=== PATIENT | female | born 1980 | race Asian ===

== ENCOUNTER 2022-09-20 14:30 | Outpatient (RCR) | payer OTHER, SELFPAY ==
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
== END 2023-03-23 09:46 | disposition home or self-care (01) ==
LOC: SP 14:30
PROVIDERS: Family Provider Student in an Organized Health Care Education/Training Program; PCP Student in an Organized Health Care Education/Training Program; Referring Provider Student in an Organized Health Care Education/Training Program; Visit Provider Student in an Organized Health Care Education/Training Program
DX: R47.9 Unspecified speech disturbances (principal)
CPT/HCPCS: 92507; 92523

== ENCOUNTER → 2024-11-25 08:09 | Outpatient (CLI) | payer OTHER, SELFPAY | LOC: RESP 08:09 | PROVIDERS: Family Provider Student in an Organized Health Care Education/Training Program; PCP Student in an Organized Health Care Education/Training Program; Referring Provider Internal Medicine; Visit Provider Internal Medicine | DX: R06.09 Other forms of dyspnea (principal); R94.2 Abnormal results of pulmonary function studies; J98.8 Other specified respiratory disorders | CPT/HCPCS: 94060; 94726; 94729 ==

== ENCOUNTER → 2025-02-06 11:33 | Outpatient (CLI) | payer OTHER, SELFPAY ==
--- NOTE | 2025-02-06 11:34 | DI.MRI.S_ITS ---
PROCEDURE: MR LUMBAR SPINE WO CON INDICATIONS: Lower back pain TECHNIQUE: Noncontrast sagittal T1 spin echo and T2 fast echo, sagittal STIR, and T2 fast spin echo through the lumbar spine. In cases with scoliosis, additional coronal T2 fast spin echo may be performed. COMPARISON: None. FINDINGS: Image quality: Excellent. Alignment and Curvature: There is normal bony alignment. Bone Marrow: Marrow is of normal overall signal. No acute vertebral body compression fractures. Spinal Cord: Conus medullaris terminates at the T12 level. Visualized cord demonstrates normal signal and size. Paraspinous Soft Tissues: No paravertebral masses. T12-L1: Normal appearance. L1-L2: Normal appearance. L2-L3: Normal appearance. L3-L4: There is a mild disc bulge as well as bilateral facet arthropathy. Mild indentation of the thecal sac, without significant spinal stenosis. L4-L5: There is disc bulge with superimposed shallow left lateral protrusion. There is also annular fissure on the left laterally measuring 7 mm in length. There is mild facet arthropathy. No significant spinal stenosis. L5-S1: There is disc bulge with superimposed shallow left protrusion. There is moderate left lateral recess stenosis with posterior displacement of the descending left S1 root. There is no central or significant foraminal stenosis. IMPRESSION: 1. Multilevel degenerative changes with left lateral spinal stenosis at L5-S1. 2. No definite disc extrusion and no acute osseous lesions seen. Dictated by: Robert Thomas M.D. on 02/08/2025 at 17:43 Approved by: Robert Thomas M.D. on 02/08/2025 at 17:50
== END ==
PROVIDERS: Family Provider Student in an Organized Health Care Education/Training Program
DX: M47.816 Spondylosis without myelopathy or radiculopathy, lumbar region (principal); M48.07 Spinal stenosis, lumbosacral region; M54.50 Low back pain, unspecified
CPT/HCPCS: 72148

== ENCOUNTER 2025-05-05 08:16 | Emergency (ER) | payer OTHER, SELFPAY ==
[2025-05-05] VITALS (12 sets, daily range): BP systolic 127–165; BP diastolic 74–98; PULSE 62–88; RESP 12–18; TEMP 36.4; O2SAT 98–100; BMI 25.8
--- NOTE | 2025-05-05 09:23 | ED.ABDPAIN ---
HPI - Abdominal Pain General Chief Complaint: Abdominal Pain Stated Complaint: Pain in stomach after surgery x 7 days Time Seen by Provider: 05/05/25 09:01 Source: patient, RN notes reviewed and old records reviewed Mode of arrival: Ambulatory Limitations: no limitations History of Present Illness HPI narrative: 44-year-old female with a history of fibroids. Patient states had laparoscopic surgery for fibroids 7 days ago at [facility] [place], on evaluation found multiple fibroids which were more complicated than the procedure allowed for and the procedure was terminated with the plan for hysterectomy in the future. Patient states she has been healing well but starting last night started having pain at the umbilical laparoscopic site that radiates up towards her chest. She describes it as painful in her belly and more of a pressure in her chest a little bit off to the right. She denies fevers or chills. No shortness of breath. No syncope. No nausea or vomiting. States she is stooling regularly denies any black or bloody stools. Notes she has has a little bit of persistent bloody spotting vaginally. States it is not getting any worse but has not resolved. Denies any odor. Denies any dysuria urgency or frequency. Patient states she has been taking Tylenol as needed for pain none today. States no daily medications. Denies any allergies to medications. Denies any other prior surgeries. No regular tobacco, no daily alcohol, no recreational drugs. Patient is in the [place]. Received her surgery at [facility]. Has a video follow up this upcoming Monday. Related Data Home Medications ?Medication ?Instructions ?Recorded ?Confirmed acetaminophen 325 mg capsule 650 mg PO Q4H PRN 01/21/25 04/17/25 amitriptyline 10 mg tablet 10 mg PO BEDTIME 01/21/25 04/17/25 carboxymethylcellulose sodium 0.5 drp ophthalmic (eye) PRN 01/21/25 04/17/25 % eye drops in a dropperette famotidine 20 mg tablet 20 mg PO DAILY 01/21/25 04/17/25 fluticasone propionate 44 1 puff inhalation ONCE 01/21/25 04/17/25 mcg/actuation HFA aerosol inhaler hydrocortisone 1 %-pramoxine 1 % IN 01/21/25 04/17/25 rectal foam (Proctofoam HC) ibuprofen 600 mg tablet 600 mg PO Q8H PRN 01/21/25 04/17/25 meloxicam 7.5 mg tablet 7.5 mg PO BID PRN 01/21/25 04/17/25 methocarbamol 500 mg tablet 500 mg PO ONCE PRN 01/21/25 04/17/25 oxybutynin chloride 5 mg tablet 5 mg PO DAILY 01/21/25 04/17/25 sumatriptan succinate 50 mg tablet See Rx Instructions PO .COMPLEX 01/21/25 04/17/25 tretinoin 0.1 % topical cream applic topical DAILY 01/21/25 04/17/25 Previous Rx's ?Medication ?Instructions ?Recorded fluticasone fur. 200 mcg-umeclid 1 inh inhalation DAILY #60 ea 04/17/25 62.5 mcg-vilant 25 mcg inhalat.powder (Trelegy Ellipta) Allergies Allergy/AdvReac Type Severity Reaction Status Date / Time No Known Drug Allergies Allergy Verified 05/05/25 08:35 Review of Systems Review of Systems ROS Unobtainable: All systems reviewed & are unremarkable except as noted in HPI and below Patient History Social History Smoking Status: Never smoker Smoking Status: Never smoker Exam Narrative Exam Narrative: GENERAL: Alert and oriented x three, well-appearing female in mild distress HEENT: Head normocephalic, atraumatic, EOMI, pupils reactive, face symmetric, moist mucous membranes NECK: Supple, full range of motion CARDIOVASCULAR: Regular rate and rhythm without murmurs, rubs or gallops. RESPIRATORY: Breath sounds equal bilaterally, no wheezes rales or rhonchi. ABDOMEN: Soft, patient has mild tenderness of the umbilicus, she has a little bit of greenish ecchymosis superior side of the umbilicus, no palpable mass, no warmth erythema or other skin changes. The incision appears to be healed. Normoactive bowel sounds all 4 quadrants. No guarding or rebound, rigidity, no mass : No CVA tenderness EXTREMITIES: Normal range of motion, no clubbing or edema. Neurovascularly intact NEUROLOGICAL: Cranial nerves II through XII grossly intact. Moving all extremities SKIN: Warm, dry, no petechiae, no rashes or lesions. Initial Vital Signs Initial Vital Signs: Vital Signs Pulse Rate 88 05/05/25 08:28 Pulse Oximetry 99 05/05/25 08:28 Course Orders Ordered: ED Orders 05/05/25 09:37 CT abdomen pelvis w con Stat CT angio chest PE protocol Stat EKG-12 Lead Stat 05/05/25 09:46 Test Urine Stat Urine Culture Stat Urine Microscopic Stat 05/05/25 09:50 Complete Blood Count AUTO DIFF Stat Comprehensive Metabolic Panel Stat Lipase Stat Troponin & CK Cardiac Panel Stat Discontinued Medications Sodium Chloride (Normal Saline 0.9%) 1,000 mls @ 1,000 mls/hr IV BOLUS ONE Stop: 05/05/25 10:36 Last Infusion: 05/05/25 11:04 Dose: Infused Documented By: Admin: 05/05/25 10:25 Dose: 1,000 mls/hr Documented By: RAE Vital Signs Vital signs: Vital Signs - 8 hr 05/05/25 08:28 05/05/25 08:29 05/05/25 08:29 Temperature Pulse Rate 88 74 Respiratory Rate Blood Pressure 165/89 H Pulse Oximetry 99 99 Oxygen Delivery Method 05/05/25 08:30 05/05/25 08:30 05/05/25 08:32 Temperature 97.5 F L Pulse Rate 81 69 Respiratory Rate 18 Blood Pressure 164/86 H 165/89 H Pulse Oximetry 99 99 Oxygen Delivery Method Room Air 05/05/25 09:00 05/05/25 09:00 05/05/25 09:30 Temperature Pulse Rate 75 75 Respiratory Rate Blood Pressure 127/74 Pulse Oximetry 98 100 Oxygen Delivery Method 05/05/25 09:30 05/05/25 10:00 05/05/25 10:30 Temperature Pulse Rate 62 Respiratory Rate Blood Pressure 161/79 H 157/89 H Pulse Oximetry 100 Oxygen Delivery Method 05/05/25 10:30 05/05/25 10:31 05/05/25 10:31 Temperature Pulse Rate 66 66 Respiratory Rate Blood Pressure 148/78 H Pulse Oximetry 100 100 Oxygen Delivery Method 05/05/25 11:00 05/05/25 11:00 05/05/25 11:11 Temperature Pulse Rate 67 Respiratory Rate 16 Blood Pressure 137/79 149/98 H Pulse Oximetry 100 Oxygen Delivery Method 05/05/25 11:11 05/05/25 11:30 05/05/25 11:30 Temperature Pulse Rate 67 64 Respiratory Rate 12 17 Blood Pressure 143/79 H Pulse Oximetry 100 99 Oxygen Delivery Method MDM - Abdominal Pain Lab Data 05/05/25 09:50 05/05/25 09:50 Labs: Lab Results 05/05/25 05/05/25 Range/Units 09:46 09:50 WBC 8.8 (4.5-11.0) X10^3/uL RBC 4.78 (4.0-5.2) X10^6/uL Hgb 14.3 (12.0-16.0) g/dL Hct 41.9 (36-46) % MCV 87.8 (80-100) fL MCH 30.0 (26-34) PG MCHC 34.2 (30-36) % RDW 12.9 (11.6-14.8) % Plt Count 236 (150-400) X10^3/uL Neut % (Auto) 65.3 (50-75) % Lymph % (Auto) 25.4 (25-40) % Smyth % (Auto) 6.4 (3-14) % Eos % (Auto) 2.1 (2-4) % Baso % (Auto) 0.8 (0-2) % Neut # (Auto) 5700 (8920-6666) /uL Lymph # (Auto) 2200 (7164-6549) /uL Smyth # (Auto) 600 (0-900) /uL Eos # (Auto) 200 (0-450) /uL Baso # (Auto) 100 (0-100) /uL Sodium 138 (137-145) mmol/L Potassium 4.3 (3.4-5.1) mmol/L Chloride 103 (98-107) mmol/L Carbon Dioxide 27 (22-32) mmol/L BUN 14 (7-17) mg/dL Creatinine 0.57 (0.52-1.04) mg/dL Estimated GFR > 60 (>60) mL/min BUN/Creatinine Ratio 24.6 H (6-22) Glucose 96 (70-99) mg/dL Calcium 9.7 (8.4-10.2) mg/dL Total Bilirubin 0.9 (0.2-1.3) mg/dL AST 39 H (14-36) IU/L ALT 23 (<35) IU/L Alkaline Phosphatase 68 (38-126) U/L Total Creatine Kinase 36 (30-135) U/L Troponin I < 0.012 (0.01-0.034) ng/mL Total Protein 8.6 H (6.3-8.2) g/dL Albumin 4.7 (3.5-5.0) g/dL Globulin 3.9 (1.7-4.1) g/dL Albumin/Globulin Ratio 1.2 (1.0-2.8) Lipase 43 (23-300) U/L Urine RBC 10-30/hpf H (0-5/HPF) Urine WBC 5-10/hpf H (0-5/HPF) Ur Squamous Epith Cells 10-30 /hpf H (0-5/HPF) Urine Bacteria Few (2-10) H (None) Ur Culture Indicated? Specimen cultured Vol Urine Centrifuged 10ml (spun) Urine Test Negative (Negative) Point of care testing: Urine Dip Bedside Urine Glucose Negative Bedside Urine Bilirubin - Negative Bedside Urine Ketone - Negative Urine Specific Rhodell 1.010 Bedside Urine Occult Blood +++ Bedside Urine pH 7.5 Bedside Urine Protein +/- 15 Bedside Urine Urobilinogen - Negative Bedside Urine Nitrite - Negative Bedside Urine Leukocytes - Negative Esterase ECG Data Attestation: I personally reviewed and interpreted this ECG as follows: Interpretation: Sinus rhythm rate of 61 IN 136 QRS 88 QTC of 414. No acute ST elevation depression.No prior for comparison MDM Narrative Medical decision making narrative: EKG sinus rhythm, no acute ST changes Labs CBC shows no major change, chemistries show normal electrolytes, renal function, AST is 39 but bilirubin ALT, alk-phos and lipase are normal range, troponins less than 0.012. Urine shows blood, protein no nitrates or leuks, RBCs 10-30, white cells 5-10 squamous 10-30 bacteria few separate culture. CT chest angio no PE, no acute cardiopulmonary process. Mild pectus deformity exaggerates AP diameter chest chest film. CT abdomen pelvis extensive uterine fibroids, no acute abdominal process noted mild diffuse hepatic steatosis enlargement of left lobe of the liver. 44-year-old female proximally week status post laparoscopic attempted surgery for fibroid removal. Patient notes some discomfort at her umbilicus is very localized no obvious palpable hernia but she notes that the discomfort radiates up in her chest into the right side a little bit. Noting she is only 8 days postoperative concern for pulmonary embolism versus other change labs, CT abdomen pelvis and EKG were obtained. This shows fibroids, some panic steatosis which was shared with the patient but no other major change or otherwise. Discussed her urine possible infection we will await culture as she is asymptomatic. Patient is aware of this. She has follow up this Monday by video with her general surgeon plan to follow up for hysterectomy for her fibroids. Discussed return precautions all questions answered. Discharge Plan Departure Patient Disposition: Home Clinical Impression: Status post laparoscopic surgery, Umbilical pain, Hepatic steatosis, Fibroid, uterine Activity Restrictions/Additional Instructions: Follow up with your general surgeon. Your urine shows questionable infection culture is pending takes 48-72 hours to result if positive we will contact you to start oral antibiotics. Who had labs, CT imaging today which showed no major changes with your recent surgery. They did not note some hepatic steatosis or fatty liver this is something you should share with your primary care physician and watch your liver enzymes. Imaging also noted your uterine fibroids. Continue with the acetaminophen and/or ibuprofen as needed for pain. Return if you develop fevers, new chest pain or shortness of breath, lightheadedness or passing out, any persistent vomiting or other new or concerning changes. Prescriptions: No Action tretinoin 0.1 % cream topical DAILY methocarbamol 500 mg tablet 500 mg PO ONCE PRN sumatriptan succinate 50 mg tablet See Rx Instructions PO .COMPLEX Rx Instructions: take 1 tab at onset of headache; if no relief may repeat 1 tab after at least 2 hrs; max = 4 tabs/24 hr PO meloxicam 7.5 mg tablet 7.5 mg PO BID PRN famotidine 20 mg tablet 20 mg PO DAILY amitriptyline 10 mg tablet 10 mg PO BEDTIME Proctofoam HC 1-1 % foam IN fluticasone propionate 44 mcg/actuation HFA aerosol inhaler 1 puff inhalation ONCE Rx Instructions: administer with spacer ibuprofen 600 mg tablet 600 mg PO Q8H PRN oxybutynin chloride 5 mg tablet 5 mg PO DAILY carboxymethylcellulose sodium 0.5 % dropperette ophthalmic (eye) PRN acetaminophen 325 mg capsule 650 mg PO Q4H PRN Trelegy Ellipta 200-62.5-25 mcg blister with device 1 inh inhalation DAILY Qty: 60 11RF Rx Instructions: rinse mouth with water, gargle and spit after each use Referrals: Mariela Dhaliwal [Primary Care Provider, Medical] Stand Alone Forms: Patient Portal/API, Work Release Note
--- NOTE | 2025-05-05 09:37 | DI.CT.S_ITS ---
PROCEDURE: CT ANGIO CHEST PE PROTOCOL INDICATIONS: s/p attempted laproscopic sx for fibroids TECHNIQUE: After the administration of intravenous contrast, 2 mm thick sections acquired from the pulmonary apices to the posterior costophrenic angles. 3-dimensional maximum intensity projection (MIP) coronal and sagittal reformats were then acquired through the thorax. For radiation dose reduction, the following was used: automated exposure control, adjustment of mA and/or kV according to patient size. COMPARISON: [facility], CT, CT ABDOMEN PELVIS W CON, 05/05/2025, 9:45. FINDINGS: Image quality: Diagnostic. Pulmonary arteries: Pulmonary arteries are normal in size, and demonstrate no intraluminal filling defects to suggest central pulmonary embolism. Lower Neck: No enlarged lymph nodes. Thyroid: No thyroid nodules which require sonographic follow up, per consensus guidelines. Axillae: No enlarged lymph nodes. Chest Wall: Unremarkable. Bones: Mild pectus deformity exaggerates the AP diameter of the chest on a chest film. No acute bony abnormality. No lytic or blastic bony lesions.. Lungs and Pleura: No pneumothorax or pleural effusions. No consolidation or suspicious nodules. Heart: Heart size is normal. No pericardial effusion. Thoracic Vessels: No aortic aneurysm. Mediastinum and Lisa: No enlarged lymph nodes. Esophagus: No wall thickening. No hiatal hernia. Upper Abdomen: See CT abdomen and pelvis report from the same date. IMPRESSION: No pulmonary embolus. No acute cardiopulmonary process. Dictated by: Juan R Lozano M.D. on 05/05/2025 at 10:18 Approved by: Juan R Lozano M.D. on 05/05/2025 at 10:24
--- NOTE | 2025-05-05 09:37 | DI.CT.S_ITS ---
PROCEDURE: CT ABDOMEN PELVIS W CON INDICATIONS: s/p attempted laproscopic sx for fibroids, stopped TECHNIQUE: After the administration of intravenous contrast, axial sections acquired from the lung bases to the pubic symphysis. Coronal and sagittal reformats were performed. For radiation dose reduction, the following was used: automated exposure control, adjustment of mA and/or kV according to patient size. COMPARISON: [facility], MR, MR PELVIS WO/W CON, 04/17/2025, 12:40. FINDINGS: Image quality: Diagnostic. Lower Chest: No significant findings. ABDOMEN: Liver: No solid mass. Enlarged left lobe of liver. Very mild diffuse hepatic steatosis. Gallbladder: No radiopaque gallstones or wall thickening. Biliary ducts: No biliary dilation. Pancreas: No ductal dilation. Spleen: Size is within normal limits. Adrenal Glands: No adrenal nodules. Kidneys and Ureters: No hydronephrosis. No solid mass. No complex renal cystic lesion which requires follow up. Stomach and Bowel: Normal colonic caliber, without significant wall thickening. Mild diverticulosis. Normal appendix. Peritoneum: No abnormal intraperitoneal fluid. No free air. Ventral Wall: No significant ventral hernia. Abdominal Nodes: No retroperitoneal or mesenteric adenopathy by size criteria. Vessels: Aorta and inferior vena cava are normal in size. PELVIS: Pelvic Organs: There are numerous very large fibroids including very large pedunculated or exophytic fibroids. Bladder: No bladder wall thickening, accounting for underdistention. Pelvic Nodes: No enlarged lymph nodes. Miscellaneous: No inguinal hernias are seen. Bones: No aggressive osseous abnormality. IMPRESSION: 1. Extensive uterine fibroids. 2. No acute abdominal process noted. 3. Mild diffuse hepatic steatosis, enlargement of the left lobe of the liver. Dictated by: Juan R Lozano M.D. on 05/05/2025 at 10:24 Approved by: Juan R Lozano M.D. on 05/05/2025 at 10:29
--- NOTE | 2025-05-05 09:39 | EKG_ITS ---
[address] [id number] [address], [place] [address] Test Date: 2025-05-05 Pat Name: Liu Campos Department: Room: Gender: Female Network Planner: JESSICA : [id number] Requested By: Order Number: [id number] Reading MD: Piyush Brown MD Measurements Intervals Krebs Rate: 61 P: 28 FL: 136 QRS: 46 QRSD: 88 T: 10 QT: 412 QTc: 414 Interpretive Statements Normal sinus rhythm Electronically Signed On 05-05-2025 10:25:38 PDT by Piyush Brown MD
[2025-05-05] MEDS: SODIUM CHLORIDE 0.9% 1,000 ML 1000 ML IV (10:25)
[2025-05-05 10:26] LABS: Add Manual Diff / Slide Review NO; Hematocrit 41.9 % (36-46); Hemoglobin 14.3 g/dL (12.0-16.0); Lymphocytes Absolute Auto 2200 /uL (1100-4500); Mean Corpuscular HGB Conc 34.2 % (30-36); Mean Corpuscular Hemoglobin 30.0 PG (26-34); Mean Corpuscular Volume 87.8 fL (80-100); Platelet Count 236 X10^3/uL (150-400)
[2025-05-05 10:33] LABS: Alanine Aminotransferase 23 IU/L (<35); Albumin 4.7 g/dL (3.5-5.0); Albumin Globulin Ratio 1.2 (1.0-2.8); Alkaline Phosphatase 68 U/L (38-126); Blood Urea Nitrogen 14 mg/dL (7-17); Calcium 9.7 mg/dL (8.4-10.2); Carbon Dioxide 27 mmol/L (22-32); Chloride 103 mmol/L (98-107); Creatine Kinase 36 U/L (30-135); Estimated Glomerular Filt Rate > 60 mL/min (>60); Globulin 3.9 g/dL (1.7-4.1); Glucose 96 mg/dL (70-99); HEMOLYSIS 31 (0-50); Lipase 43 U/L (23-300); Potassium 4.3 mmol/L (3.4-5.1); Sodium 138 mmol/L (137-145); Total Protein 8.6 g/dL (6.3-8.2)
[2025-05-05 10:44] LABS: Troponin I < 0.012 ng/mL (0.01-0.034)
[2025-05-05 11:12] LABS: Culture Indicated Urine Specimen Cultured
== END 2025-05-05 11:55 | disposition home or self-care (01) ==
PROVIDERS: Emergency Provider Emergency Medicine; Family Provider Student in an Organized Health Care Education/Training Program
DX: Z98.890 Other specified postprocedural states (principal); D25.9 Leiomyoma of uterus, unspecified; K76.0 Fatty (change of) liver, not elsewhere classified; R10.33 Periumbilical pain
CPT/HCPCS: 36415; 71275; 74177; 80053; 81003; 81015; 81025; 82550; 83690; 84484; 85025; 87077; 87086; 87186; 93005; 93010; 99284; Q9967

== ENCOUNTER 2025-06-26 11:34 | Emergency (ER) | payer OTHER, SELFPAY ==
[2025-06-26 11:37] VITALS: BP 158/85; PULSE 75; RESP 16; TEMP 36.1; O2SAT 97; BMI 27.3
--- NOTE | 2025-06-26 12:01 | PC.NURSE ---
Reports bloating/discomfort worse after eating/taking medications. Has been taking Naproxen 500mg BID with food.
--- NOTE | 2025-06-26 12:15 | DI.CT.S_ITS ---
PROCEDURE: CT ABDOMEN PELVIS W CON INDICATIONS: s/p hysterectomy 06/17, bloating/fevers/px TECHNIQUE: After the administration of intravenous contrast, axial sections acquired from the lung bases to the pubic symphysis. Coronal and sagittal reformats were performed. For radiation dose reduction, the following was used: automated exposure control, adjustment of mA and/or kV according to patient size. COMPARISON: [facility], CT, CT ABDOMEN PELVIS W CON, 05/05/2025, 9:45. FINDINGS: Image quality: Diagnostic. Lower Chest: No significant findings. ABDOMEN: Postoperative changes are now noted status post hysterectomy. Expected postoperative changes with small pelvic fluid, edema in the pelvic fat are noted however superimposed inflammatory changes, mild phlegmon without focal abscess could have a similar appearance. No loculated fluid collection to suggest drainable abscess. There is [id number] wall thickening of the urinary bladder measuring up to 1.3 cm superior-posteriorly and wall thickening of the small bowel, distal ileum in the low pelvis as well as the distal descending, sigmoid colon and rectum. No gross free gas. Again noted is the prominent left lobe of the liver which extends far left laterally along the left margin of the spleen unchanged. Mild nonspecific wall thickening of the distal esophagus into the stomach, duodenum and proximal jejunum mildly increased some of which may be artifact from partial nondistention although esophagitis, gastritis, gastroenteritis or other process could be considered. No CT evidence of bowel obstruction. Nondilated appendix with small areas of high attenuation may be related to contrast or small appendicoliths but without CT evidence of appendicitis. Gallbladder: No radiopaque gallstones or wall thickening. Biliary ducts: No biliary dilation. Pancreas: No ductal dilation. Spleen: Size is within normal limits. Adrenal Glands: No adrenal nodules. Kidneys and Ureters: No hydronephrosis. No solid mass. No complex renal cystic lesion which requires follow up. IMPRESSION: Postoperative changes in the pelvis with some fluid, increased attenuation of the pelvic fat wall thickening of the bladder and bowel as discussed above follow-up suggested. No CT evidence of obstruction or abscess. Dictated by: Flip North M.D. on 06/26/2025 at 12:49 Approved by: Flip North M.D. on 06/26/2025 at 12:56
[2025-06-26 12:33] LABS: Add Manual Diff / Slide Review NO; Hematocrit 39.4 % (36-46); Hemoglobin 13.2 g/dL (12.0-16.0); Lymphocytes Absolute Auto 1800 /uL (1100-4500); Mean Corpuscular HGB Conc 33.6 % (30-36); Mean Corpuscular Hemoglobin 29.8 PG (26-34); Mean Corpuscular Volume 88.7 fL (80-100); Platelet Count 309 X10^3/uL (150-400)
[2025-06-26 12:36] LABS: Lactate (Lactic Acid) 1.3 mmol/L (0.7-2.1)
[2025-06-26 12:37] LABS: Alanine Aminotransferase 15 IU/L (<35); Albumin 4.4 g/dL (3.5-5.0); Albumin Globulin Ratio 1.2 (1.0-2.8); Alkaline Phosphatase 83 U/L (38-126); Blood Urea Nitrogen 11 mg/dL (7-17); Calcium 9.1 mg/dL (8.4-10.2); Carbon Dioxide 25 mmol/L (22-32); Chloride 105 mmol/L (98-107); Estimated Glomerular Filt Rate > 60 mL/min (>60); Globulin 3.6 g/dL (1.7-4.1); Glucose 134 mg/dL (70-99); HEMOLYSIS 32 (0-50); Lipase 29 U/L (23-300); Potassium 4.4 mmol/L (3.4-5.1); Sodium 140 mmol/L (137-145); Total Protein 8.0 g/dL (6.3-8.2)
--- NOTE | 2025-06-26 12:38 | ED.ABDPAIN ---
HPI - Abdominal Pain General Chief Complaint: Fever Stated Complaint: Fever , pain/ bloating , after surgery Time Seen by Provider: 06/26/25 11:48 Source: patient, RN notes reviewed and old records reviewed Mode of arrival: Ambulatory Limitations: no limitations History of Present Illness HPI narrative: 44-year-old female with complaint of bloating and fever of 99 and 100 F at home. Patient had hysterectomy on 06/17/2025 for fibroids and dysfunctional uterine bleeding. Patient denies any nausea or vomiting. She has had normal bowel movements, she has noted occasional dysuria but no frequency or urgency. She has felt not increase in pain but feel but more bloated and full. She does not note any changes to her wounds on her belly. Patient states she has been taking naproxen for pain which is helpful. She has denies any other daily medications currently. She had an ex lap in April of 2025 for potential procedure for her fibroid and was noted that has 2 large they aborted her procedure for this week surgery. No known drug allergies. No tobacco, no alcohol, no recreational drugs. Related Data Home Medications ?Medication ?Instructions ?Recorded ?Confirmed acetaminophen 325 mg capsule 650 mg PO Q4H PRN 01/21/25 05/19/25 amitriptyline 10 mg tablet 10 mg PO BEDTIME 01/21/25 05/19/25 carboxymethylcellulose sodium 0.5 drp ophthalmic (eye) PRN 01/21/25 05/19/25 % eye drops in a dropperette famotidine 20 mg tablet 20 mg PO DAILY 01/21/25 05/19/25 fluticasone propionate 44 1 puff inhalation ONCE 01/21/25 05/19/25 mcg/actuation HFA aerosol inhaler hydrocortisone 1 %-pramoxine 1 % MO 01/21/25 05/19/25 rectal foam (Proctofoam HC) ibuprofen 600 mg tablet 600 mg PO Q8H PRN 01/21/25 05/19/25 meloxicam 7.5 mg tablet 7.5 mg PO BID PRN 01/21/25 05/19/25 methocarbamol 500 mg tablet 500 mg PO ONCE PRN 01/21/25 05/19/25 oxybutynin chloride 5 mg tablet 5 mg PO DAILY 01/21/25 05/19/25 sumatriptan succinate 50 mg tablet See Rx Instructions PO .COMPLEX 01/21/25 05/19/25 tretinoin 0.1 % topical cream applic topical DAILY 01/21/25 05/19/25 Previous Rx's ?Medication ?Instructions ?Recorded fluticasone fur. 200 mcg-umeclid 1 inh inhalation DAILY #60 ea 04/17/25 62.5 mcg-vilant 25 mcg inhalat.powder (Trelegy Ellipta) prednisone 20 mg tablet 40 mg (2 x 20 mg) PO DAILY #10 tabs 05/19/25 tezepelumab-ekko 210 mg/1.91 mL 210 mg (1.91 mL) SUBCUT Q4W #1.91 05/28/25 (110 mg/mL) subcutaneous pen mL injector (Tezspire) amoxicillin 875 mg-potassium 1 tab PO BID 10 days #20 tabs 06/26/25 clavulanate 125 mg tablet Allergies Allergy/AdvReac Type Severity Reaction Status Date / Time No Known Drug Allergies Allergy Verified 05/19/25 14:57 Review of Systems Review of Systems ROS Unobtainable: All systems reviewed & are unremarkable except as noted in HPI and below Exam Narrative Exam Narrative: GENERAL: Alert and oriented x three, female in mild distress HEENT: Head normocephalic, atraumatic, EOMI, pupils reactive, face symmetric, moist mucous membranes NECK: Supple, full range of motion CARDIOVASCULAR: Regular rate and rhythm without murmurs, rubs or gallops. RESPIRATORY: Breath sounds equal bilaterally, no wheezes rales or rhonchi. ABDOMEN: Soft, nontender. Patient is slightly distended. Incisions are clean dry and intact without any sign of infection. Normoactive bowel sounds all 4 quadrants. No guarding or rebound, rigidity, no mass : No CVA tenderness EXTREMITIES: Normal range of motion, no clubbing or edema. Neurovascularly intact NEUROLOGICAL: Cranial nerves II through XII grossly intact. Moving all extremities SKIN: Warm, dry, no petechiae, no rashes or lesions. Initial Vital Signs Initial Vital Signs: Vital Signs Temperature 97.0 F L 06/26/25 11:37 Pulse Rate 75 06/26/25 11:37 Respiratory Rate 16 06/26/25 11:37 Blood Pressure 158/85 H 06/26/25 11:37 Pulse Oximetry 97 06/26/25 11:37 Oxygen Delivery Method Room Air 06/26/25 11:37 Course Orders Ordered: ED Orders 06/26/25 11:52 Complete Blood Count AUTO DIFF Stat Comprehensive Metabolic Panel Stat Lactate (Lactic Acid) Stat Lipase Stat Procalcitonin Stat 06/26/25 12:00 Urine Microscopic Stat 06/26/25 12:15 CT abdomen pelvis w con Stat 06/26/25 12:44 Blood Culture Stat PTT Partial Thromboplastin Davian Stat Prothrombin Time INR Stat 06/26/25 15:06 Urine Culture Stat Discontinued Medications Acetaminophen (Acetaminophen 325 Mg Tablet) 975 mg PO NOW ONE Stop: 06/26/25 14:47 Last Admin: 06/26/25 14:53 Dose: 975 mg Documented By: RAE Amoxicillin/Clavulanate Potassium (Amoxicillin/Clav 875/125 Mg) 1 tab PO NOW ONE Stop: 06/26/25 14:59 Last Admin: 06/26/25 15:01 Dose: 1 tab Documented By: RAE Cephalexin HCl (Cephalexin 250 Mg Capsule) 500 mg PO NOW ONE Stop: 06/26/25 14:44 Last Admin: 06/26/25 15:01 Dose: Not Given Documented By: RAE Ondansetron HCl (Ondansetron 4 Mg/2 Ml Inj) 4 mg IV NOW PRN PRN Reason: Nausea And Vomiting Ondansetron HCl (Ondansetron 4 Mg Odt) 4 mg PO NOW PRN PRN Reason: Nausea And Vomiting Vital Signs Vital signs: Vital Signs - 8 hr 06/26/25 11:37 06/26/25 15:10 Temperature 97.0 F L 98.9 F Pulse Rate 75 62 Respiratory Rate 16 14 Blood Pressure 158/85 H 134/68 Pulse Oximetry 97 98 Oxygen Delivery Method Room Air Room Air MDM - Abdominal Pain Lab Data 06/26/25 11:52 06/26/25 11:52 Labs: Lab Results 06/26/25 06/26/25 06/26/25 Range/Units 11:52 12:00 12:44 WBC 12.9 H (4.5-11.0) X10^3/uL RBC 4.44 (4.0-5.2) X10^6/uL Hgb 13.2 (12.0-16.0) g/dL Hct 39.4 (36-46) % MCV 88.7 (80-100) fL MCH 29.8 (26-34) PG MCHC 33.6 (30-36) % RDW 13.0 (11.6-14.8) % Plt Count 309 (150-400) X10^3/uL Neut % (Auto) 74.2 (50-75) % Lymph % (Auto) 13.9 L (25-40) % Overton % (Auto) 8.5 (3-14) % Eos % (Auto) 2.9 (2-4) % Baso % (Auto) 0.5 (0-2) % Neut # (Auto) 9600 H (7184-1538) /uL Lymph # (Auto) 1800 (1970-9985) /uL Overton # (Auto) 1100 H (0-900) /uL Eos # (Auto) 400 (0-450) /uL Baso # (Auto) 100 (0-100) /uL PT 12.7 H (9.4-12.5) SECONDS INR 1.1 (0.9-1.3) APTT 34 (25.1-36.5) SECONDS Sodium 140 (137-145) mmol/L Potassium 4.4 (3.4-5.1) mmol/L Chloride 105 (98-107) mmol/L Carbon Dioxide 25 (22-32) mmol/L BUN 11 (7-17) mg/dL Creatinine 0.55 (0.52-1.04) mg/dL Estimated GFR > 60 (>60) mL/min BUN/Creatinine Ratio 20.0 (6-22) Glucose 134 H (70-99) mg/dL Lactate 1.3 (0.7-2.1) mmol/L Calcium 9.1 (8.4-10.2) mg/dL Total Bilirubin 0.6 (0.2-1.3) mg/dL AST 26 (14-36) IU/L ALT 15 (<35) IU/L Alkaline Phosphatase 83 (38-126) U/L Total Protein 8.0 (6.3-8.2) g/dL Albumin 4.4 (3.5-5.0) g/dL Globulin 3.6 (1.7-4.1) g/dL Albumin/Globulin Ratio 1.2 (1.0-2.8) Lipase 29 (23-300) U/L Procalcitonin 0.062 (<0.5) ng/mL Urine RBC 0-1/hpf D (0-5/HPF) Urine WBC 1-5/hpf (0-5/HPF) Ur Squamous Epith Cells 5-10 /hpf H (0-5/HPF) Urine Bacteria None seen (None) Ur Culture Indicated? Cult not indicated Vol Urine Centrifuged 10ml (spun) Point of care testing: Urine Dip Bedside Urine Glucose Negative Bedside Urine Bilirubin - Negative Bedside Urine Ketone - Negative Urine Specific [place] 1.010 Bedside Urine Occult Blood - Negative Bedside Urine pH 7.5 Bedside Urine Protein - Negative Bedside Urine Urobilinogen - Negative Bedside Urine Nitrite - Negative Bedside Urine Leukocytes ++ 125 Esterase MDM Narrative Medical decision making narrative: Labs show white count of 12.9 hemoglobin of 13 platelets of 309, low lymphocytes 9600 neutrophils. Patient also has a 1100 monocytes. INR is normal PTT is normal, electrolytes BUN and creatinine are normal glucose is 134 lactate is 1.3 LFTs are negative procalcitonin is normal at 0.062. Point of care shows positive leukocyte esterase. Urine micro shows 5-10 squamous 1-5 white cells 1 red cell was sent for culture. CT abdomen pelvis: Postop changes status post hysterectomy expected changes with small pelvic fluid, edema in the pelvic fat noted however superimposed inflammatory changes, mild segment without focal abscess could have similar appearance. There was no loculated fluid collection to that is being drainable abscess. [id number] wall thickening of the urinary bladder measuring up to 1.3 cm superior posterior and wall thickening of the small bowel distal ileum in the low pelvis as well as distal descending sigmoid and rectum. No gross free gas. Can noted prominent left lobe of the liver which extends far left lateral along the margin of the spleen unchanged. Mild nonspecific wall thickening distal esophagus in the stomach, duodenum and proximal jejunum bili increased some which may be artifact from partial nondistention through esophagitis, gastritis, gastroenteritis or other process considered no CT evidence of bowel obstruction nondilated appendix with small areas of high attenuation maybe related to contrast or small appendicolith without CT evidence of appendicitis. Spoke with the patient with her findings at this time would treat for UTI and started on oral antibiotics. Call to patient's surgeon, I suspect she may have UTI but we would like to have her have short term follow up for area of possible postoperative change versus potentially developing phlegmon. Dr. Marie was unavailable, but was able to speak with the office nurse who has been in contact with Dr. Marie. Reviewed her findings to today reviewed or urine sample from today we will order urine culture they will call back for results on Monday morning reviewed CT imaging findings and concern for possibly developing phlegmon versus normal postoperative changes. Dr. Marie had some concerns for a vaginal cuff cellulitis which has a most common finding this far out from surgery and had recommended Augmentin 875 b.i.d. times 10 days. We will go ahead and start patient on this with the plan for patient she has a video follow up on Monday but maybe changed to an in-person visit by the office. Patient was updated reviewed all of her findings she feels comfortable with the plan she is for a dose of tylenol. Discharge Plan Departure Patient Disposition: Home Clinical Impression: UTI (urinary tract infection) Instructions: DI for Urinary Tract Infection (UTI) Activity Restrictions/Additional Instructions: Your urine today shows possible signs of infection, it was sent for urine culture this should be resulted by Monday. You or your doctor's office can call for the results. Your CT imaging showed a questionable developing phlegmon on your imaging versus postoperative changes there has a little bit of thickening of the bladder wall as well. There was no free air or abscess appreciated on your imaging today. Your images were pushed to [facility] today. Take oral antibiotics until completed. Prescription sent to [facility] [place]. Please return if you have any persistent fevers over the next 24-48 hours, new or worsening abdominal back or flank pain, any vomiting, black or bloody stools, new or changing vaginal odor or discharge or new vaginal bleeding or other new or concerning changes. Prescriptions: New amoxicillin-pot clavulanate 875-125 mg tablet 1 tab PO BID 10 Days Qty: 20 0RF No Action Tezspire 210 mg/1.91 mL (110 mg/mL) pen injector 210 mg SUBCUT Q4W Qty: 1.91 11RF tretinoin 0.1 % cream topical DAILY methocarbamol 500 mg tablet 500 mg PO ONCE PRN sumatriptan succinate 50 mg tablet See Rx Instructions PO .COMPLEX Rx Instructions: take 1 tab at onset of headache; if no relief may repeat 1 tab after at least 2 hrs; max = 4 tabs/24 hr PO meloxicam 7.5 mg tablet 7.5 mg PO BID PRN famotidine 20 mg tablet 20 mg PO DAILY amitriptyline 10 mg tablet 10 mg PO BEDTIME Proctofoam HC 1-1 % foam MO fluticasone propionate 44 mcg/actuation HFA aerosol inhaler 1 puff inhalation ONCE Rx Instructions: administer with spacer ibuprofen 600 mg tablet 600 mg PO Q8H PRN oxybutynin chloride 5 mg tablet 5 mg PO DAILY carboxymethylcellulose sodium 0.5 % dropperette ophthalmic (eye) PRN acetaminophen 325 mg capsule 650 mg PO Q4H PRN Trelegy Ellipta 200-62.5-25 mcg blister with device 1 inh inhalation DAILY Qty: 60 11RF Rx Instructions: rinse mouth with water, gargle and spit after each use prednisone 20 mg tablet 40 mg PO DAILY Qty: 10 0RF Referrals: Mariela Dhaliwal [Primary Care Provider, Medical] Stand Alone Forms: Patient Portal/API
[2025-06-26 12:55] LABS: Procalcitonin 0.062 ng/mL (<0.5)
[2025-06-26 12:59] LABS: INR 1.1 (0.9-1.3); Prothrombin Time 12.7 SECONDS (9.4-12.5)
[2025-06-26 13:02] LABS: PTT Partial Thromboplastin Tim 34 SECONDS (25.1-36.5)
[2025-06-26 13:03] LABS: Culture Indicated Urine Cult Not Indicated
[2025-06-26] MEDS: ACETAMINOPHEN 325 MG TABLET 975 MG PO (14:53)
[2025-06-26] MEDS: AMOXICILLIN/CLAV 875/125 MG 1 TAB PO (15:01)
[2025-06-26 15:10] VITALS: BP 134/68; PULSE 62; RESP 14; TEMP 37.2; O2SAT 98
== END 2025-06-26 15:17 | disposition home or self-care (01) ==
PROVIDERS: Emergency Provider Emergency Medicine; Family Provider Student in an Organized Health Care Education/Training Program
DX: N39.0 Urinary tract infection, site not specified (principal); B95.8 Unspecified staphylococcus as the cause of diseases classified elsewhere; Z16.11 Resistance to penicillins; Z90.710 Acquired absence of both cervix and uterus
CPT/HCPCS: 36415; 74177; 80053; 81003; 81015; 83605; 83690; 84145; 85025; 85610; 85730; 87040; 87077; 87086; 87147; 87186; 99284; Q9967